=== PATIENT | female | born 1955 | race Caucasian/White ===

== ENCOUNTER → 2017-07-06 | Outpatient (CLI) | payer OTHER ==
[~2017-07-06] MED LIST: ASP81CT PO; ESTR1TAB13 PO; OMEG-12 PO; PRX20T PO
--- NOTE | 2017-07-06 19:20 | Diagnostic Imaging Report ---
INDICATION: Routine screening. Comparison is made with prior study from 12/10/2014 and 10/25/2012. 2D and 3D bilateral screening mammography with Computer Aided Detection (CAD) system was performed. FINDINGS: Scattered fibroglandular densities are identified bilaterally. There is a fibronodular parenchymal pattern. Circumscribed nodular densities are again noted in both breasts, consistent with benign etiologies. No spiculated mass or malignant appearing microcalcifications are seen. There is a biopsy clip in the left breast. The axillae are unremarkable. IMPRESSION: No mammographic features suspicious for malignancy are identified. ACR BI-RADS Category 2: Benign findings. Result letter will be mailed to the patient. Note: At least 10% of breast cancer is not imaged by mammography. Dictated by: Dictated on workstation # [id number]
== END ==
LOC: RAD 13:49
PROVIDERS: ATTEND Nurse Practitioner Family
DX: Z12.31 Encounter for screening mammogram for malignant neoplasm of breast (principal)
CPT/HCPCS: 77067

== ENCOUNTER → 2018-03-12 | Outpatient (CLI) | payer OTHER ==
--- NOTE | 2018-03-12 18:02 | Diagnostic Imaging Report ---
INDICATION: Low back pain, neuropathy. TECHNIQUE: AP, Lateral and Spot imaging of the lumbar spine. CORRELATION STUDY: None. FINDINGS: 6 mm anterolisthesis L4 on L5. Alignment is otherwise anatomic. Lumbar vertebral body heights are maintained. Asymmetric areas of disc space narrowing, most pronounced at L4-L5 and L5-S1 levels. Hypertrophic facet arthropathy in the lower lumbar spine levels. IMPRESSION: Grade 1 spondylolisthesis of L4 on L5, likely degenerative in nature. No definitive evidence for acute bony abnormality. Mild multilevel disc space narrowing. Dictated by: Dictated on workstation # [id number]
== END ==
LOC: RAD 14:29
PROVIDERS: ATTEND Nurse Practitioner Family
DX: M43.16 Spondylolisthesis, lumbar region (principal); M51.36 Other intervertebral disc degeneration, lumbar region; G62.9 Polyneuropathy, unspecified
CPT/HCPCS: 72100

== ENCOUNTER 2018-04-25 09:59 | Outpatient (RCR) | payer OTHER | END 2018-05-17 11:34 | disposition home or self-care (01) | PROVIDERS: ATTEND Nurse Practitioner Family | DX: M43.16 Spondylolisthesis, lumbar region (principal); M54.5 Low back pain ==

== ENCOUNTER → 2018-08-28 | Outpatient (CLI) | payer OTHER ==
--- NOTE | 2018-08-28 15:33 | Diagnostic Imaging Report ---
INDICATION: Routine screening. COMPARISON: 07/06/2017 and 12/10/2014. TECHNIQUE: 2D and 3D bilateral screening mammography was performed with CAD. FINDINGS: Both breasts are heterogeneously dense with a fibronodular parenchymal pattern again noted. A biopsy clip in the outer left breast is again noted. The overall parenchymal pattern appears to be stable. There are benign calcifications bilaterally. No spiculated mass or malignant appearing microcalcifications are seen. The axillae are unremarkable. IMPRESSION: No mammographic features suspicious for malignancy are identified. ACR BI-RADS Category 2: Benign findings. Result letter will be mailed to the patient. Note: At least 10% of breast cancer is not imaged by mammography. Dictated by: Dictated on workstation # [id number]
== END ==
LOC: RAD 13:00
PROVIDERS: ATTEND Nurse Practitioner Family
DX: Z12.31 Encounter for screening mammogram for malignant neoplasm of breast (principal); Z98.890 Other specified postprocedural states
CPT/HCPCS: 77067

== ENCOUNTER → 2019-11-04 | Outpatient (CLI) | payer OTHER ==
--- NOTE | 2019-11-04 12:59 | Diagnostic Imaging Report ---
PROCEDURE: US Renal Bilateral. TECHNIQUE: Multiple real-time grayscale images were obtained over the kidneys in various projections bilaterally. INDICATION: Renal cysts. FINDINGS: Right kidney measures 9.7 x 5.1 x 5.2 cm, left kidney kidney measures 9.9 x 5.3 x 5.4 cm. Both kidneys demonstrate normal renal cortical thickness and echogenicity. A 1.2 cm cyst in the superior pole of the left kidney. There is no hydronephrosis or calculi. IMPRESSION: Small left renal cyst otherwise unremarkable renal ultrasound. Dictated by: Dictated on workstation # [id number]
--- NOTE | 2019-11-04 12:59 | Diagnostic Imaging Report ---
EXAMINATION: Bilateral mammogram. CLINICAL INDICATION: Screening. COMPARISON: 08/28/2018, 07/06/2017, and 12/10/2014. TECHNIQUE: Screening digital mammography was performed bilaterally with a Computer Aided Detection (CAD) system. FINDINGS: The fibroglandular tissue is heterogeneously dense bilaterally. There are two nodular densities in the upper central right breast which have increased in size. There are also some increased areas of nodularity in the central left breast. There are benign type calcifications. The skin, nipples, and axillae are unremarkable. IMPRESSION: Numerous nodular densities in the central aspect of both breasts. Further evaluation with spot compression and ultrasound is recommended. ACR BI-RADS Category 0: Incomplete. (Needs additional imaging evaluation). Result letter will be mailed to the patient. Note: At least 10% of breast cancer is not imaged by mammography. Dictated by: Dictated on workstation # [id number]
== END ==
LOC: RAD 10:45
PROVIDERS: ATTEND Nurse Practitioner Family
DX: Z12.31 Encounter for screening mammogram for malignant neoplasm of breast (principal); N28.1 Cyst of kidney, acquired
CPT/HCPCS: 76770; 77063; 77067

== ENCOUNTER → 2019-12-05 | Outpatient (CLI) | payer OTHER ==
--- NOTE | 2019-12-05 09:53 | Diagnostic Imaging Report ---
INDICATION: Bilateral breast densities. Patient presents for additional views. Correlation is made with screening exam from 11/04/2019. 2-D and 3-D bilateral diagnostic mammography was performed. This includes spot compression CC and ML views as well as conventional 90 degree lateral views. There are numerous circumscribed nodular densities in both breasts, likely representing cysts. These appear to be located in the upper mid to posterior aspect of the right breast as well as outer aspect of the right breast. There is a probable cyst in the inferior right breast at mid depth as well. Circumscribed densities on the left are primarily in the upper portion of the mid left breast approximately 12:00 location. There is also circumscribed density 9:00 at mid to posterior depth. All these areas should be evaluated with ultrasound. No suspicious microcalcifications are seen. IMPRESSION: BI-RADS 0 Numerous circumscribed nodular densities bilateral breasts, as described, likely representing cysts. Further evaluation with ultrasound is recommended and will be performed today. ACR BI-RADS Category 0: Incomplete. (Needs additional imaging evaluation). Result letter will be mailed to the patient. Note: At least 10% of breast cancer is not imaged by mammography. Dictated by: Dictated on workstation # [id number]
--- NOTE | 2019-12-05 11:02 | Diagnostic Imaging Report ---
INDICATION: Bilateral breast densities. Correlation is made with diagnostic mammogram earlier today as well as screening mammogram from 11/04/2019. Right breast: There are numerous cysts in the right breast. At the 12:00 location, 9 cm from the nipple there is an 8 mm x 9 mm x 11 mm cyst. At the 10:00 location 4 to 8 cm from the nipple there is a cluster of cysts. In addition, there is a macrolobulated but circumscribed solid-appearing nodule measuring 1.1 x 0.8 x 1.0 cm. This has fairly benign features and most likely represents a fibroadenoma. An additional cyst at the 7:00 location, 7 cm from the nipple is noted measuring 1.2 x 0.8 x 1.1 cm. Left breast: Numerous cysts are identified. A cyst at the 12:30 location, 7 cm from the nipple measures 8 mm x 5 mm x 7 mm. A cyst at the 10:30 location 9 cm from the nipple measures 0.8 x 0.5 x 0.6 cm. 2nd cyst measures approximately 0.4 x 0.6 cm. No concerning abnormality in the left breast is identified. IMPRESSION: BI-RADS Category 3 Multiple bilateral breast cysts, accounting for the mammographic densities. There is a circumscribed, solid nodule at the 10:00 location of the right breast 4-8 cm from the nipple. This has the appearance of a fibroadenoma. Even so, follow-up right breast ultrasound in 6 months is recommended to show continued stability. ACR BI-RADS Category 3: Probably benign findings. Dictated by: Dictated on workstation # [id number]
== END ==
LOC: RAD 08:57
PROVIDERS: ATTEND Nurse Practitioner Family
DX: N60.01 Solitary cyst of right breast (principal); N60.02 Solitary cyst of left breast; N63.11 Unspecified lump in the right breast, upper outer quadrant
CPT/HCPCS: 76642; 77066; G0279; 77062

== ENCOUNTER 2020-02-21 15:09 | Outpatient (CLI) | payer OTHER | END 2020-02-21 16:45 | disposition home or self-care (01) | LOC: SLEEP 15:09 | PROVIDERS: ATTEND Nurse Practitioner Family | DX: G47.10 Hypersomnia, unspecified (principal) ==

== ENCOUNTER → 2020-07-20 | Outpatient (CLI) | payer OTHER ==
--- NOTE | 2020-07-20 15:46 | Diagnostic Imaging Report ---
INDICATION: Six-month followup right breast nodule. Correlation is made with prior ultrasound from 12/05/2019. Multiple cysts in the upper and outer aspect of the right breast are again noted. The previously noted lobulated solid-appearing nodule at the 9:30 to 10:00 location of the right breast 6-7 cm from the nipple appears to be stable measuring 9 mm x 9 mm x 7 mm compared with 10 mm x 8 mm x 10 mm. No new solid mass is detected. IMPRESSION: BI-RADS Category 3 Stable solid nodule at the 9:30 to 10:00 location of the right breast 6-7 cm from the nipple when compared to exam 6 months earlier. Additional six-month followup ultrasound is recommended to show continued stability. ACR BI-RADS Category 3: Probably benign findings. Result letter will be mailed to the patient. Note: At least 10% of breast cancer is not imaged by mammography. Dictated by: Dictated on workstation # [id number]
== END ==
LOC: RAD 13:33
PROVIDERS: ATTEND Family Medicine
DX: N63.11 Unspecified lump in the right breast, upper outer quadrant (principal)

== ENCOUNTER → 2021-09-03 | Outpatient (CLI) | payer OTHER ==
--- NOTE | 2021-09-03 13:58 | Diagnostic Imaging Report ---
Indication: Six-month follow-up right breast nodule. Correlation is made prior mammograms 11/04/2019 08/28/2018. 2-D and 3-D bilateral diagnostic mammography was performed with CAD. CAD is utilized. The current study was also evaluated with a Computer Aided Detection (CAD) system. Both breasts remain heterogeneously dense, limiting the sensitivity of mammography. Numerous circumscribed nodules in both breasts are again noted. Majority nodules do appear to be slightly smaller on today's study, likely diminution of cysts. No new mass is seen. No malignant-appearing microcalcifications are seen. There is a biopsy marker in the left breast. Axillae are unremarkable. IMPRESSION: BI-RADS 0 Stable bilateral mammograms. Majority of circumscribed lesions in both breasts are smaller on today's study, likely diminution of cysts. Further evaluation of the outer right breast at the area of previously noted lobulated density with ultrasound is recommended and will be performed today. ACR BI-RADS Category 0: Incomplete. (Needs additional imaging evaluation). Result letter will be mailed to the patient. Note: At least 10% of breast cancer is not imaged by mammography. Dictated by: Dictated on workstation # [id number]
--- NOTE | 2021-09-03 15:16 | Diagnostic Imaging Report ---
INDICATION: Six-month follow-up of right breast nodules. COMPARISON: Correlation is made with prior exam dating back to 12/05/2019. EXAMINATION: Sonographic interrogation of the outer right breast was performed. FINDINGS: A cluster of cysts at the 10:30 location of right breast, 9 cm from the nipple, is noted, measuring similar to prior study at 10 mm x 3 mm x 5 mm. Multiple cystic structures with debris at the 9:30 location, 6 cm from the nipple, are noted, all measuring smaller than prior study. One lesion measures 6 cm x 4 mm x 6 mm compared with 6 mm x 5 mm x 4 mm. Second lesion measures 4 mm x 3 mm x 3 mm compared with 9 mm x 9 mm x 6 mm. A third complex cystic lesion measures 8 mm x 5 mm x 8 mm compared with 10 mm x 10 mm x 7 mm. No new mass is detected. IMPRESSION: Stable to slight decreased size of multiple complex cystic lesions in the outer right breast. This now shows approximately two years of stability. Patient may return to routine annual screening mammography. ACR BI-RADS Category 2: Benign findings. Result letter will be mailed to the patient. Note: At least 10% of breast cancer is not imaged by mammography. Dictated by: Dictated on workstation # [id number]
== END ==
LOC: RAD 13:23
PROVIDERS: ATTEND Family Medicine
DX: N60.01 Solitary cyst of right breast (principal)
CPT/HCPCS: 76642; 77066; G0279; 77062

== ENCOUNTER → 2023-01-24 | Outpatient (CLI) | payer OTHER ==
--- NOTE | 2023-01-24 16:11 | Diagnostic Imaging Report ---
INDICATION: Postmenopausal screening COMPARISON: None FINDINGS: AP Spine L1-L4: [BMD (g/cm2): 1.218] [T-Score: 0.1] [Z-Score: 1.6] [BMD Previous: na] [BMD % Change: na] LT Hip Neck: [BMD (g/cm2): 0.877] [T-Score: -1.2] [Z-Score: 0.2] LT Hip Total: [BMD (g/cm2):0.990] [T-Score:-0.1] [Z-Score: 1.0] [BMD Previous: na] [BMD % Change: na] RT Hip Neck: [BMD (g/cm2):0.805] [T-Score:-1.7] [Z-Score:-0.3] RT Hip Total: [BMD (g/cm2):0.982] [T-score:-0.2] [Z-Score:0.9] [BMD Previous:na] [BMD % Change:na] *Indicates significant change from prior examination based on 95% confidence level. World Health Organization criteria for BMD interpretation classify patients as Normal (T-score at or above -1.0), Osteopenic (T-score between -1.0 and -2.5) or Osteoporotic (T-score at or below -2.5). LIMITATIONS AND MODIFICATION: None. FRACTURE RISK (FRAX SCORE): The ten year probability of (%): Major Osteoporotic Fracture: [17.3] Hip Fracture: [1.4] IMPRESSION: 1. Normal bone mineral density. 2. Baseline examination. 3. See below National Osteoporosis Foundation guidelines on when to potentially initiate pharmacologic therapy. Based on the National Osteoporosis Foundation Guidelines, pharmacologic treatment should be initiated in any of the following, unless clinical conditions suggest otherwise: * Any patient with prior fragility fracture of the hip or vertebrae. A spine fracture indicates 5X risk for subsequent spine fracture and 2X risk for subsequent hip fracture. * Osteoporosis (T-score <-2.5). * Postmenopausal women and men age 50 and older with low bone mass/osteopenia (T-score between -1.0 and -2.5) by DXA and 10-year major osteoporotic fracture greater than 20% or a 10-year probability of hip fracture greater than 3%. These fracture risks are supplied above in the FRAX score, if applicable. * Clinician judgement and/or patient preferences may indicate treatment for people with 10-year fracture probabilities above or below these levels. Dictated by: Dictated on workstation # [id number]
--- NOTE | 2023-01-24 19:17 | Diagnostic Imaging Report ---
Indication: Routine screening. Comparison is made with prior mammograms from 09/03/2021 and 11/04/2019. 2-D and 3-D bilateral screening mammography was performed with CAD. Both breasts are heterogeneously dense, limiting the sensitivity of mammography. Circumscribed nodules in both breasts are stable and again consistent with cysts. No new mass or malignant-appearing microcalcifications are identified. Axillae are unremarkable. IMPRESSION: BI-RADS Category 2 No mammographic features suspicious for malignancy are identified. ACR BI-RADS Category 2: Benign findings. Result letter will be mailed to the patient. Note: At least 10% of breast cancer is not imaged by mammography. Dictated by: Dictated on workstation # [id number]
== END ==
LOC: RAD 12:51
PROVIDERS: ATTEND Nurse Practitioner Family
DX: Z12.31 Encounter for screening mammogram for malignant neoplasm of breast (principal); M81.0 Age-related osteoporosis without current pathological fracture
CPT/HCPCS: 77063; 77067; 77080